=== PATIENT | male | born 1990 | race Caucasian/White ===

== ENCOUNTER 2017-09-30 14:43 | Emergency (ER) | payer MEDICAID ==
[~2017-09-30] VITALS: Ht 175.3 cm; Wt 64.5 kg
[2017-09-30 15:13] VITALS: Ht 175.3 cm; Wt 64.5 kg
[2017-09-30] MEDS ORDERED: NEURONTIN 300300 MG PO (15:15)
[2017-09-30] MEDS ORDERED: PERCOCET 10/3251 TA1 PO (15:16)
[2017-09-30] MEDS ORDERED: TORADOL10 MG PO (17:50)
[2017-10-01 03:26] VITALS: BP 109/71
== END 2017-09-30 19:30 | disposition home or self-care (01) ==
LOC: D.ER 14:43
DX: M25.531 Pain in right wrist (principal)

== ENCOUNTER 2018-03-18 03:47 | Emergency (ER) | payer MEDICAID ==
[~2018-03-18] VITALS: Ht 175.3 cm; Wt 64.5 kg
[~2018-03-18 03:47] MED LIST: NEURONTIN 300300 MG PO; PERCOCET 10/3251 TA1 PO; TORADOL10 MG PO
[2018-03-18 03:54] VITALS: Ht 175.3 cm; Wt 64.5 kg
[2018-03-18] MEDS ORDERED: NORCO 5/325 TAB1 TAB PO (05:11)
[2018-03-18 05:34] VITALS: BP 121/74
== END 2018-03-18 05:35 | disposition home or self-care (01) ==
LOC: D.ER 03:47
DX: S69.91XA Unspecified injury of right wrist, hand and finger(s), initial encounter (principal); W22.8XXA Striking against or struck by other objects, initial encounter; Y93.89 Activity, other specified; Y92.019 Unspecified place in single-family (private) house as the place of occurrence of the external cause; F17.200 Nicotine dependence, unspecified, uncomplicated

== ENCOUNTER 2018-07-15 01:51 | Emergency (ER) | payer MEDICAID ==
[~2018-07-15] VITALS: Ht 175.3 cm; Wt 62.3 kg
[~2018-07-15 01:51] MED LIST changes: +NORCO 5/325 TAB1 TAB PO
[2018-07-15 01:56] VITALS: Ht 175.3 cm; Wt 62.3 kg
[2018-07-15 02:27] LABS: UDS - AMPHET POSITIVE QUAL (NEGATIVE); UDS - BARB NEGATIVE QUAL (NEGATIVE); UDS - BENZO POSITIVE QUAL (NEGATIVE); UDS - COCAINE NEGATIVE QUAL (NEGATIVE); UDS - OPIATE NEGATIVE QUAL (NEGATIVE); UDS - PCP NEGATIVE QUAL (NEGATIVE); UDS - THC POSITIVE QUAL (NEGATIVE)
[2018-07-15 02:34] LABS: APPEARANCE CLEAR (CLEAR); BACTERIA NONE SEEN /hpf (NONE SEEN); BILIRUBIN NEGATIVE (NEGATIVE); COLOR YELLOW (YELLOW); EPITHELIAL CELLS NSEEN /hpf (0-5); GLUCOSE NEGATIVE (NEGATIVE); KETONE NEGATIVE (NEGATIVE); NITRITE NEGATIVE (NEGATIVE); PROTEIN NEGATIVE (NEGATIVE); RED CELLS - URINE 0-5 /hpf (0-5); WHITE CELLS - URINE NSEEN /hpf (0-5)
[2018-07-15 03:01] LABS: BASOPHILS 0.1 % (0-2); EOSINOPHILS 1.1 % (0-7); HEMOGLOBIN 12.8 g/dL (13.5-17.5); IMMATURE GRANULOCYTES 0.2 % (0-5); MCHC 34.6 g/dL (31.0-37.0); MCV 83.9 fL (80.0-100.0); MEAN PLATELET VOLUME 9.7 fL (7.4-10.4); MONOCYTES 13.1 % (2-11); NEUTROPHILS 74.5 % (40-80); PLATELET COUNT 268 10x3/uL (130-400); RBC 4.41 10x6/uL (4.20-6.10); RDW 12.5 % (11.5-14.5); WBC 14.9 10x3/uL (4.8-10.8)
[2018-07-15 03:10] LABS: APTT 40.7 SECONDS (22.8-39.4); INR 1.16 (0.85-1.17); PROTIME 14.3 SECONDS (11.6-15.0)
[2018-07-15 03:14] VITALS: BP 114/69
[2018-07-15 03:15] LABS: ALBUMIN 3.1 g/dL (3.4-5.0); ALKALINE PHOSPHATASE 89 U/L (46-116); ALT (SGPT) 27 U/L (10-68); BILIRUBIN - TOTAL 0.62 mg/dL (0.2-1.3); CALC OSMOLALITY 266 mosm/kg (275-300); CALCIUM 8.8 mg/dL (8.5-10.1); CARBON DIOXIDE 26.4 mmol/L (21.0-32.0); CHLORIDE - SERUM 96 mmol/L (98-107); CREATININE - SERUM 0.9 mg/dL (0.6-1.3); GLUCOSE 142 mg/dL (74-106); POTASSIUM - SERUM 3.6 mmol/L (3.5-5.1); PROTEIN - SERUM 7.6 g/dL (6.4-8.2); SODIUM 133 mmol/L (136-145); UREA NITROGEN 9 mg/dL (7-18); eGFR NON AFRICAN AMERICAN > 90 mL/min (90-120)
[2018-07-15 03:27] LABS: CKMB 2.6 U/L (0.0-3.6); CREATINE KINASE 796 UL (21-232); TROPONIN-I < 0.017 ng/mL (0.000-0.060)
== END 2018-07-15 03:18 | disposition left against medical advice (07) ==
LOC: D.ER 01:51
PROVIDERS: Family Medicine
DX: R41.82 Altered mental status, unspecified (principal); F15.10 Other stimulant abuse, uncomplicated; F11.10 Opioid abuse, uncomplicated; I45.10 Unspecified right bundle-branch block; R00.0 Tachycardia, unspecified

== ENCOUNTER 2018-07-18 01:03 | Emergency (ER) | payer MEDICAID ==
[2018-07-18] MEDS ORDERED: KEFLEX750 MG PO (01:51)
[2018-07-18] MEDS ORDERED: CODEINE SULFATE30 MG PO (01:51)
== END 2018-07-18 02:00 | disposition home or self-care (01) ==
LOC: D.ER 01:03
DX: J01.90 Acute sinusitis, unspecified (principal); R07.89 Other chest pain